=== PATIENT | male | born 1960 | race Caucasian/White ===

== ENCOUNTER 2024-03-21 08:45 | Emergency (ER) | payer MEDICARE, SELFPAY ==
[2024-03-21] VITALS (9 sets, daily range): BP systolic 142–161; BP diastolic 67–90; PULSE 47–55; RESP 14–18; TEMP 36.1; O2SAT 96–99; BMI 31.6
--- NOTE | 2024-03-21 09:25 | EKG_ITS ---
[facility] [address] [place] [address] Test Date: 2024-03-21 Pat Name: Bello Tobias Department: [facility] Room: Gender: Male Manufacturing Coordinator: JANEEN : 1960 Requested By: Order Number: [id number] Reading MD: Boubacar Fontana MD Measurements Intervals [place] Rate: 53 P: 3 VT: 178 QRS: -16 QRSD: 104 T: 31 QT: 440 QTc: 412 Interpretive Statements Sinus bradycardia with premature atrial complexes Minimal voltage criteria for LVH, may be normal variant ( R in aVL ) Electronically Signed On 03-22-2024 8:05:31 PST by Boubacar Fontana MD
[2024-03-21 09:39] LABS: Add Manual Diff / Slide Review NO; Basophils Absolute Auto 100 /uL (0-100); Basophils Percent Auto 0.9 % (0-2); Eosinophils Absolute Auto 100 /uL (0-450); Eosinophils Percent Auto 0.9 % (2-4); Hemoglobin 15.9 g/dL (13.5-17.5); Lymphocytes Absolute Auto 2000 /uL (1100-4500); Lymphocytes Percent Auto 27.6 % (25-40); Mean Corpuscular HGB Conc 33.9 % (30-36); Mean Corpuscular Hemoglobin 32.6 PG (26-34); Mean Corpuscular Volume 96.2 fL (80-100); Monocytes Absolute Auto 600 /uL (0-900); Neutrophils Absolute Auto 4400 /uL (1500-7000); Neutrophils Percent Auto 61.6 % (50-75); Platelet Count 171 X10^3/uL (150-400); Red Blood Cell Count 4.89 X10^6/uL (4.5-5.9); Red Cell Distribution Width 13.1 % (11.6-14.8); White Blood Cell Count 7.2 X10^3/uL (4.5-11.0)
[2024-03-21 09:51] LABS: Alanine Aminotransferase 31 IU/L (<50); Albumin 4.5 g/dL (3.5-5.0); Albumin Globulin Ratio 1.4 (1.0-2.8); Alkaline Phosphatase 68 U/L (38-126); Aspartate Aminotransferase 32 IU/L (17-59); BUN Creatinine Ratio 15.1 (6-22); Bilirubin Total 1.2 mg/dL (0.2-1.3); Blood Urea Nitrogen 13 mg/dL (9-20); Calcium 9.4 mg/dL (8.4-10.2); Carbon Dioxide 28 mmol/L (22-32); Chloride 104 mmol/L (98-107); Estimated Glomerular Filt Rate > 60 mL/min (>60); Globulin 3.3 g/dL (1.7-4.1); Glucose 99 mg/dL (80-110); HEMOLYSIS 31 (0-50); Lipase 71 U/L (23-300); Potassium 4.5 mmol/L (3.4-5.1); Sodium 137 mmol/L (137-145); Total Protein 7.8 g/dL (6.3-8.2)
--- NOTE | 2024-03-21 10:00 | ED.GENADULT ---
HPI - General Adult General Chief complaint: Abdominal Pain Stated complaint: Pain on His left side Time Seen by Provider: 03/21/24 09:57 Source: patient Mode of arrival: Family Vehicle History of Present Illness HPI narrative: 63-year-old gentleman with a history of traumatic brain injury presents with acute left-sided flank pain that is started at 3:00 a.m. on March 18. He has been having intermittent pain since then. Did notice some blood in his urine over the last couple of days. Bowel movements have been normal. He has not having anterior suprapubic tenderness. No chest pain, orthopnea, dyspnea. He has not noticed any fevers or chills. No nausea or vomiting. Related Data Home Medications Medication Instructions Recorded Confirmed aspirin 325 mg tablet 325 mg PO PRN PRN ##0 02/03/17 03/02/23 Previous Rx's Medication Instructions Recorded atorvastatin 40 mg tablet (Lipitor) 40 mg PO HS #90 tabs 10/13/16 lisinopril 20 1 tab PO QDAY #90 tabs 10/28/16 mg-hydrochlorothiazide 12.5 mg tablet amoxicillin 875 mg-potassium 1 tab PO BID #20 tabs 03/21/24 clavulanate 125 mg tablet ondansetron 4 mg disintegrating 4 mg PO Q8H PRN nausea and 03/21/24 tablet vomiting #7 tabs oxycodone-acetaminophen 5 mg-325 1 tab PO Q6H PRN pain #10 tabs 03/21/24 mg tablet Allergies Allergy/AdvReac Type Severity Reaction Status Date / Time ENVIRONMENTAL Allergy Mild SNEEZING, Uncoded 03/21/24 09:09 EYE IRRITATION Review of Systems Review of Systems Narrative: Pertinent positive and negative findings as per HPI Patient History Medical History Traumatic brain injury Coronary artery disease Hyperlipidemia Hypertension Family History Brother Age: 62 Hypertension High cholesterol Social History Smoking Status: Former smoker Smoking Status: Former smoker tobacco type: cigarettes alcohol intake frequency: 3 or more drinks per day Substance Use Type: does not use Exam Initial Vital Signs Initial Vital Signs: Vital Signs Temperature 97 F L 03/21/24 09:03 Pulse Rate 55 L 03/21/24 09:03 Respiratory Rate 18 03/21/24 09:03 Blood Pressure 142/84 H 03/21/24 09:03 Pulse Oximetry 97 03/21/24 09:03 Oxygen Delivery Method Room Air 03/21/24 09:03 General: Healthy appearing, in no acute distress. Able to give a complete and coherent history. Well-nourished well-developed HEENT: Moist mucous membranes, normal sclera with reactive pupils, Respiratory: Lungs are clear to auscultation, no wheezing no rales no rhonchi. 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 Extremities: No trauma, well perfused Psych: Cooperative, appropriate insight and affect Course Orders Ordered: ED Orders 03/21/24 09:10 EKG-12 Lead Stat 03/21/24 09:22 Complete Blood Count AUTO DIFF Stat Comprehensive Metabolic Panel Stat Lipase Stat 03/21/24 11:28 CT kidney ureter bladder (KUB) Stat 03/21/24 11:45 Urine Microscopic Stat Ondansetron HCl (Ondansetron 4 Mg/2 Ml Inj) 4 mg IV NOW PRN PRN Reason: Nausea And Vomiting Ondansetron HCl (Ondansetron 4 Mg Odt) 4 mg PO NOW PRN PRN Reason: Nausea And Vomiting Vital Signs Vital signs: Vital Signs - 8 hr 03/21/24 09:03 03/21/24 09:50 03/21/24 09:51 Temperature 97 F L Pulse Rate 55 L 49 L Respiratory Rate 18 Blood Pressure 142/84 H 158/78 H Pulse Oximetry 97 97 Oxygen Delivery Method Room Air 03/21/24 09:51 03/21/24 10:00 03/21/24 10:00 Temperature Pulse Rate 47 L 49 L Respiratory Rate Blood Pressure 144/90 H Pulse Oximetry 99 98 Oxygen Delivery Method 03/21/24 10:30 03/21/24 10:31 03/21/24 10:31 Temperature Pulse Rate 51 L 50 L Respiratory Rate Blood Pressure 146/68 H Pulse Oximetry 96 97 Oxygen Delivery Method 03/21/24 11:00 03/21/24 11:01 03/21/24 11:01 Temperature Pulse Rate 50 L 51 L Respiratory Rate Blood Pressure 147/72 H Pulse Oximetry 97 96 Oxygen Delivery Method Medical Decision Making Lab Data 03/21/24 09:22 03/21/24 09:22 Labs: Lab Results 03/21/24 03/21/24 Range/Units 09:22 11:45 WBC 7.2 (4.5-11.0) X10^3/uL RBC 4.89 (4.5-5.9) X10^6/uL Hgb 15.9 (13.5-17.5) g/dL Hct 47.0 (41-53) % MCV 96.2 (80-100) fL MCH 32.6 (26-34) PG MCHC 33.9 (30-36) % RDW 13.1 (11.6-14.8) % Plt Count 171 (150-400) X10^3/uL Neut % (Auto) 61.6 (50-75) % Lymph % (Auto) 27.6 (25-40) % [place] % (Auto) 9.0 (3-14) % Eos % (Auto) 0.9 L (2-4) % Baso % (Auto) 0.9 (0-2) % Neut # (Auto) 4400 (7398-3539) /uL Lymph # (Auto) 2000 (9073-4140) /uL [place] # (Auto) 600 (0-900) /uL Eos # (Auto) 100 (0-450) /uL Baso # (Auto) 100 (0-100) /uL Sodium 137 (137-145) mmol/L Potassium 4.5 (3.4-5.1) mmol/L Chloride 104 (98-107) mmol/L Carbon Dioxide 28 (22-32) mmol/L BUN 13 (9-20) mg/dL Creatinine 0.86 (0.66-1.25) mg/dL Estimated GFR > 60 (>60) mL/min BUN/Creatinine Ratio 15.1 (6-22) Glucose 99 (80-110) mg/dL Calcium 9.4 (8.4-10.2) mg/dL Total Bilirubin 1.2 (0.2-1.3) mg/dL AST 32 (17-59) IU/L ALT 31 (<50) IU/L Alkaline Phosphatase 68 (38-126) U/L Total Protein 7.8 (6.3-8.2) g/dL Albumin 4.5 (3.5-5.0) g/dL Globulin 3.3 (1.7-4.1) g/dL Albumin/Globulin Ratio 1.4 (1.0-2.8) Lipase 71 (23-300) U/L Urine RBC 0-1/hpf (0-5/HPF) Urine WBC None seen (0-5/HPF) Ur Squamous Epith Cells None seen (0-5/HPF) Urine Bacteria None seen (None) Ur Culture Indicated? Cult not indicated Vol Urine Centrifuged 10ml (spun) Urine Dip Bedside Urine Glucose Negative Bedside Urine Bilirubin - Negative Bedside Urine Ketone - Negative Urine Specific Kathleen 1.025 Bedside Urine Occult Blood + Bedside Urine pH 6.0 Bedside Urine Protein +/- 15 Bedside Urine Urobilinogen - Negative Bedside Urine Nitrite - Negative Bedside Urine Leukocytes - Negative Esterase Point of care testing: Urine Dip Bedside Urine Glucose Negative Bedside Urine Bilirubin - Negative Bedside Urine Ketone - Negative Urine Specific Kathleen 1.025 Bedside Urine Occult Blood + Bedside Urine pH 6.0 Bedside Urine Protein +/- 15 Bedside Urine Urobilinogen - Negative Bedside Urine Nitrite - Negative Bedside Urine Leukocytes - Negative Esterase MDM Narrative Medical decision making narrative: CC: Left flank pain intermittent for the last 3 days Complicating co-morbidities: Hypertension, hyperlipidemia, no prior kidney stones no history of colon cancer, reports he has had prior diverticulitis Data collected from: patient Social determinants of health that may influence the patients condition: History of TBI Medical records reviewed: Primary care notes from February of 2023 are reviewed Differential considered: Kidney stone, pyelonephritis, neoplastic process, diverticulitis, bowel obstruction Exam documented above, pertinent findings include: Benign exam with the exception of mild left flank pain no rebound or guarding Lab Test results independently reviewed as above. Pertinent findings: CBC is unremarkable, no leukocytosis Chemistries are reassuring Urine does not suggest acute urinary tract infection Independently reviewed EKG: EKG shows sinus bradycardia at 53. Occasional PAC. No acute ischemic changes Imaging studies independently reviewed: CT KUB suggests developing diverticulitis, no evidence of hydronephrosis or ureterolithiasis Treatments: Zofran is given Discussion: 63-year-old gentleman presents with left flank lower quadrant pain. No signs of sepsis, kidney abnormalities or pancreatitis. He does not have an acute abdomen no evidence of urinary tract infection. CT scan suggests developing diverticulitis, he does note that he had a history of diverticulitis in the distant past. His notes that he does not drink water and we discussed the importance of staying hydrated. We discussed adding fiber to keep his stool soft particularly in light of narcotic pain medication that will also be given. At this time there was is no indication that additional imaging, blood work or hospitalization is required today he is safe for discharge Discharge Plan Departure Patient Disposition: Home Clinical Impression: Diverticulitis Instructions: DI for Diverticulitis Activity Restrictions/Additional Instructions: Thank you for coming in today Your lab work was reassuring, there is no kidney dysfunction, liver studies look normal, you do not have overwhelming infection appreciated Does not look like you have a bladder infection. Your CT scan does suggest that you have developing diverticulitis as a source of your pain. I am going to give you a prescription for Augmentin, 1 pill morning and night for 10 days please complete the entire course. I will also give you a brief prescription for Percocet to help with pain. This will make constipation worse so make sure that you are adding even more prunes along with plenty of water to your diet If you find that you are getting worse or develop any new symptoms, please feel free to return to the emergency department for further evaluation. Prescriptions: New amoxicillin-pot clavulanate 875-125 mg tablet 1 tab PO BID Qty: 20 0RF oxycodone-acetaminophen 5-325 mg tablet 1 tab PO Q6H PRN (Reason: pain) Qty: 10 0RF ondansetron 4 mg tablet,disintegrating 4 mg PO Q8H PRN (Reason: nausea and vomiting) Qty: 7 0RF No Action atorvastatin [Lipitor] 40 MG tablet 40 mg PO HS Qty: 90 1RF lisinopril-hydrochlorothiazide 20 MG/12.5 MG tablet 1 tab PO QDAY Qty: 90 1RF aspirin 325 MG tablet 325 mg PO PRN PRNQty: 0 Referrals: Matt King MD [Primary Care Provider] - Stand Alone Forms: Patient Portal/API/Survey
--- NOTE | 2024-03-21 11:28 | DI.CT.S_ITS ---
PROCEDURE: CT KIDNEY URETER BLADDER (KUB) INDICATIONS: L flank pain TECHNIQUE: Axial sections were acquired from the lung bases to the pubic symphysis. Coronal and sagittal reformats were performed. For radiation dose reduction, the following was used: automated exposure control, adjustment of mA and/or kV according to patient size. COMPARISON: None. FINDINGS: Image quality: Diagnostic Lower chest: Basal atelectasis and scarring. Possible coronary and annular cardiac calcifications. Liver: No contour deforming mass. Solid organs are not well assessed without IV contrast. Gallbladder and biliary system: Unremarkable Pancreas: No ductal dilation Spleen: Nonenlarged Adrenals: No discrete nodules Kidneys: No obstructing calcified stone. No hydronephrosis. No contour deforming mass. Vessels and lymph nodes: No abdominal aortic aneurysm. Atherosclerotic calcifications are present. No pathologic lymph nodes by size criteria. Bowel and peritoneum: No evidence of small bowel obstruction. No abscess. No pathologic ascites. Colonic diverticula are seen. Uncomplicated diverticulitis is seen in the mid descending colon. The appendix is nondilated Body wall: Small fat containing inguinal hernias. Tiny fat containing umbilical hernia. Pelvis: Under distended bladder not well assessed. Heterogeneous prostate calcifications also not well assessed on this study Bones: No acute or suspicious osseous finding. There are degenerative changes. IMPRESSION: Uncomplicated appearing diverticulitis of the descending colon. Consider colonoscopy correlation following clinical treatment. No obstructing calcified renal stone or hydronephrosis. Other findings as above on this noncontrast study. Dictated by: Carlos Carrington M.D. on 03/21/2024 at 11:59 Approved by: Carlos Carrington M.D. on 03/21/2024 at 12:02
[2024-03-21 12:00] LABS: Bacteria Urine None Seen; Culture Indicated Urine Cult Not Indicated; RBC Urine 0-1/HPF (0-5/HPF); Squamous Epithelial Cell Urine None Seen (0-5/HPF); Urine Volume 10mL (spun); WBC Urine None Seen (0-5/HPF)
== END 2024-03-21 14:01 | disposition home or self-care (01) ==
PROVIDERS: Emergency Provider Emergency Medicine; PCP Family Medicine
DX: K57.32 Diverticulitis of large intestine without perforation or abscess without bleeding (principal); R00.1 Bradycardia, unspecified
CPT/HCPCS: 36415; 74176; 80053; 81003; 81015; 83690; 85025; 93005; 93010; 99284

== ENCOUNTER 2024-04-10 08:34 | Emergency (ER) | payer MEDICARE, SELFPAY ==
[2024-04-10] VITALS (9 sets, daily range): BP systolic 120–168; BP diastolic 60–80; PULSE 38–59; RESP 16–23; TEMP 36.4; O2SAT 95–100; BMI 31.1
--- NOTE | 2024-04-10 08:50 | ED.ABDPAIN ---
HPI - Abdominal Pain General Chief Complaint: Abdominal Pain Stated Complaint: suspected diverticulitis Time Seen by Provider: 04/10/24 08:49 History of Present Illness HPI narrative: 63-year-old male with history of diverticulitis, multiple previous flares, most recently had flare 03/31/2024, had CT scan here, was treated with as an outpatient with oral Augmentin antibiotic, completed course of antibiotics, felt better after the 1st few days on antibiotics. Now has 4-5 days duration of suprapubic area discomfort. No frequency of urination. In fact feels better after urination. Denies history of urinary retention, no urinary catheterizations. No fevers or chills. No longer has left flank area discomfort like he did with his previous/recent diagnosis diverticulitis. Last bowel movement earlier today unremarkable, no black or red color. No injury or trauma or falls. No cough or shortness of breath. Denies painful urination. Denies nausea or vomiting. He had previous prescription for hydrocodone, took a dose last night. Related Data Home Medications Medication Instructions Recorded Confirmed aspirin 325 mg tablet 325 mg PO PRN PRN ##0 02/03/17 03/02/23 Previous Rx's Medication Instructions Recorded atorvastatin 40 mg tablet (Lipitor) 40 mg PO HS #90 tabs 10/13/16 lisinopril 20 1 tab PO QDAY #90 tabs 10/28/16 mg-hydrochlorothiazide 12.5 mg tablet amoxicillin 875 mg-potassium 1 tab PO BID #20 tabs 03/21/24 clavulanate 125 mg tablet ondansetron 4 mg disintegrating 4 mg PO Q8H PRN nausea and 03/21/24 tablet vomiting #7 tabs oxycodone-acetaminophen 5 mg-325 1 tab PO Q6H PRN pain #10 tabs 03/21/24 mg tablet ciprofloxacin HCl 500 mg tablet 500 mg PO BID #20 tabs 04/10/24 (Cipro) hydrocodone 5 mg-acetaminophen 325 1 tab PO Q6H PRN pain #14 tabs 04/10/24 mg tablet metronidazole 500 mg tablet 500 mg PO TID #30 tabs 04/10/24 Allergies Allergy/AdvReac Type Severity Reaction Status Date / Time ENVIRONMENTAL Allergy Mild SNEEZING, Uncoded 03/21/24 09:09 EYE IRRITATION Review of Systems Review of Systems Narrative: See HPI Patient History Medical History Traumatic brain injury Coronary artery disease Hyperlipidemia Hypertension Family History Brother Age: 62 Hypertension High cholesterol Social History Smoking Status: Former smoker Smoking Status: Former smoker tobacco type: cigarettes alcohol intake frequency: 3 or more drinks per day Substance Use Type: does not use Exam Narrative Exam Narrative: GENERAL: Well-developed patient, in mild distress. HEAD: Atraumatic. Normocephalic. EYES: Pupils equal round and reactive. Extraocular motions intact. No scleral icterus. No injection or drainage. ENT: Nose without bleeding, purulent drainage. Throat without erythema, tonsillar hypertrophy or exudate. Airway patent. NECK: Trachea midline. Non tender CARDIOVASCULAR: Regular rate and rhythm without murmurs, gallops, or rubs. RESPIRATORY: Clear to auscultation. Breath sounds equal bilaterally. No wheezes, rales, or rhonchi. GASTROINTESTINAL: Abdomen soft, non-tender, nondistended. Not particularly tender left lower quadrant, neither flank, suprapubic, right lower quadrant, or any other quadrant abdomen. EXTREMITIES: No edema or joint tenderness. BACK: Nontender without deformity or crepitance. No flank tenderness. NEURO: AOx3. Motor functions grossly nonfocal SKIN: No rash or erythema of visible areas Initial Vital Signs Initial Vital Signs: Vital Signs Temperature 97.6 F 04/10/24 08:47 Pulse Rate 50 L 04/10/24 08:47 Respiratory Rate 18 04/10/24 08:47 Blood Pressure 168/80 H 04/10/24 08:47 Pulse Oximetry 100 04/10/24 08:47 Oxygen Delivery Method Room Air 04/10/24 08:47 Course Orders Ordered: Discontinued Medications Ciprofloxacin (Ciprofloxacin 250 Mg Tablet) 500 mg PO NOW ONE Stop: 04/10/24 10:31 Last Admin: 04/10/24 10:41 Dose: 500 mg Documented By: DORCAS Metronidazole (Metronidazole 500 Mg Tablet) 500 mg PO NOW ONE Stop: 04/10/24 10:31 Last Admin: 04/10/24 10:41 Dose: 500 mg Documented By: DORCAS Vital Signs Vital signs: Vital Signs - 8 hr 04/10/24 08:47 04/10/24 08:47 04/10/24 08:52 Temperature 97.6 F Pulse Rate 50 L 59 L 47 L Respiratory Rate 18 16 Blood Pressure 168/80 H Pulse Oximetry 100 99 Oxygen Delivery Method Room Air 04/10/24 08:52 04/10/24 09:00 04/10/24 09:01 Temperature Pulse Rate 38 L 49 L Respiratory Rate 17 22 Blood Pressure 168/80 H Pulse Oximetry 98 98 Oxygen Delivery Method 04/10/24 09:01 04/10/24 09:30 04/10/24 09:31 Temperature Pulse Rate 45 L 41 L Respiratory Rate 23 21 Blood Pressure 137/76 Pulse Oximetry 97 98 Oxygen Delivery Method 04/10/24 09:31 04/10/24 10:23 04/10/24 10:25 Temperature Pulse Rate 41 L 42 L Respiratory Rate Blood Pressure 137/60 Pulse Oximetry 95 99 Oxygen Delivery Method 04/10/24 10:25 04/10/24 10:30 04/10/24 10:30 Temperature Pulse Rate 41 L Respiratory Rate 19 Blood Pressure 120/70 123/70 Pulse Oximetry 97 Oxygen Delivery Method MDM - Abdominal Pain Lab Data Attestation: I reviewed the patient's lab results. Lab results narrative: White blood cell count 6800, hemoglobin 14, platelets adequate, basic metabolic panel unremarkable, renal function normal, liver function tests normal, lipase normal. Troponin negative. 04/10/24 09:00 04/10/24 09:00 Labs: Lab Results 04/10/24 04/10/24 Range/Units 09:00 09:30 WBC 6.8 (4.5-11.0) X10^3/uL RBC 4.30 L (4.5-5.9) X10^6/uL Hgb 14.1 (13.5-17.5) g/dL Hct 41.0 (41-53) % MCV 95.2 (80-100) fL MCH 32.9 (26-34) PG MCHC 34.5 (30-36) % RDW 13.4 (11.6-14.8) % Plt Count 169 (150-400) X10^3/uL Neut % (Auto) 55.6 (50-75) % Lymph % (Auto) 33.5 (25-40) % [place] % (Auto) 8.9 (3-14) % Eos % (Auto) 1.1 L (2-4) % Baso % (Auto) 0.9 (0-2) % Neut # (Auto) 3800 (5916-1740) /uL Lymph # (Auto) 2300 (1312-5402) /uL [place] # (Auto) 600 (0-900) /uL Eos # (Auto) 100 (0-450) /uL Baso # (Auto) 100 (0-100) /uL Sodium 137 (137-145) mmol/L Potassium 4.2 (3.4-5.1) mmol/L Chloride 106 (98-107) mmol/L Carbon Dioxide 26 (22-32) mmol/L BUN 12 (9-20) mg/dL Creatinine 0.83 (0.66-1.25) mg/dL Estimated GFR > 60 (>60) mL/min BUN/Creatinine Ratio 14.5 (6-22) Glucose 96 (80-110) mg/dL Calcium 9.0 (8.4-10.2) mg/dL Total Bilirubin 1.4 H (0.2-1.3) mg/dL AST 46 (17-59) IU/L ALT 30 (<50) IU/L Alkaline Phosphatase 64 (38-126) U/L Ammonia < 9 L (9-30) umol/L Troponin I < 0.012 (0.01-0.034) ng/mL Total Protein 6.9 (6.3-8.2) g/dL Albumin 4.1 (3.5-5.0) g/dL Globulin 2.8 (1.7-4.1) g/dL Albumin/Globulin Ratio 1.5 (1.0-2.8) Lipase 52 (23-300) U/L TSH 2.38 (0.47-4.68) uIU/mL Imaging Data CT scan - abdomen/pelvis: Radiologist's Impression: [address] [address] [address] Scan Report Signed Patient: Bello Tobias MR#: [id number] : 1960 Acct:[id number] Age/Sex: 63 / M Date of Service: 04/10/24 Loc: ED Accession Number: [id number] Procedure: CT abdomen pelvis w con Ordering Provider: Delfin Boyer MD PROCEDURE: CT ABDOMEN PELVIS W CON INDICATIONS: Abdominal pain, recent oral treatment diverticulitis TECHNIQUE: After the administration of intravenous contrast, axial sections acquired from the lung bases to the pubic symphysis. Coronal and sagittal reformats were performed. For radiation dose reduction, the following was used: automated exposure control, adjustment of mA and/or kV according to patient size. COMPARISON: [facility], CT, CT KIDNEY URETER BLADDER (KUB), 03/21/2024, 11:45. FINDINGS: Image quality: Diagnostic. Lower Chest: Linear atelectasis/scarring in posterior aspect of left lung base is seen. Heart size is normal, no pericardial effusion. ABDOMEN: Liver: No solid mass. Moderate hepatic steatosis is seen. Gallbladder: No radiopaque gallstones or wall thickening. Biliary ducts: No biliary dilation. Pancreas: No ductal dilation. Spleen: Size is within normal limits. Adrenal Glands: No adrenal nodules. Kidneys and Ureters: No hydronephrosis. No solid mass. No complex renal cystic lesion which requires follow up. Stomach and Bowel: Previously described inflammatory changes involving proximal to mid descending colon as nearly resolved with minimal residual pericolonic fat stranding series 2, image 81. There is interval development of segmental wall wall thickening involving mid sigmoid colon in left lower quadrant and significant pericolonic fat stranding series 2, image 123. No abscess collection. No other area of abnormal bowel wall thickening. Appendix is visualized and is within normal limits. Peritoneum: No abnormal intraperitoneal fluid. No free air. Ventral Wall: No significant ventral hernia. Abdominal Nodes: No retroperitoneal or mesenteric adenopathy by size criteria. Vessels: Aorta and inferior vena cava are normal in size. PELVIS: Pelvic Organs: Unremarkable. Bladder: No bladder wall thickening, accounting for underdistention. Pelvic Nodes: No enlarged lymph nodes. Miscellaneous: No inguinal hernias are seen. Bones: No aggressive osseous abnormality. IMPRESSION: 1. Interval development of acute diverticulitis involving mid sigmoid colon in left lower quadrant without perforation or abscess collection. 2. Interval nearly resolved diverticulitis involving mid descending colon in left abdomen. 3. Normal appendix. No bowel obstruction. No other area of abnormal bowel wall thickening. No free fluid or free air. 4. Other findings are unchanged from prior study. Dictated by: Curtis Martinez M.D. on 04/10/2024 at 10:12 Approved by: Curtis Martinez M.D. on 04/10/2024 at 10:15 ECG Data Attestation: I personally reviewed and interpreted this ECG as follows: Interpretation: Sinus bradycardia with rate 39, no obvious ST segment elevation or depression changes. T-wave inversion lead 3 upright in leads 2 and F contiguous inferior leads. CA 178, QRS 96, QTC 383. MDM Narrative Medical decision making narrative: 63-year-old male with history of diverticulitis, most recently treated with oral antibiotic Augmentin as an outpatient for flare diagnosed 03/31/2024, improved symptoms, now with 4-5 days of suprapubic area discomfort. No frequency of urination, in fact feels better after he urinates. Denies history of known urinary retention. Bradycardia noted on monitor, history of low heart rate but not usually in the 30s, EKG and troponin pending, other labs pending. Anticipate CT abdomen and pelvis imaging, with IV contrast if GFR adequate. Pain medications offered, declined for now. CT abdomen and pelvis shows acute diverticulitis changes mid sigmoid without perforation or abscess, no obstructive changes. Also resolving proximal diverticulitis changes noted from comparison previous study. See radiology reports. Recent course oral Augmentin, we will give oral course ciprofloxacin/metronidazole, 1st oral dose now, prescription 10 day course sent to his pharmacy. Ambulation trial tolerated well, bradycardia noted, patient has history of low heart rate, no beta-petros or calcium channel petros medications listed, troponin negative, electrolytes unremarkable, patient/ informed of his asymptomatic bradycardia. They are aware that he has had low heart rates in the past. No syncope or presyncope symptoms. No chest pain or shortness of breath. No generalized or focal weakness. Further workup as an outpatient for now. Discharge Plan Departure Patient Disposition: Home Clinical Impression: Diverticulitis, Bradycardia Instructions: DI for Diverticulitis Activity Restrictions/Additional Instructions: Recent diagnosis of acute diverticulitis treated with oral course of Augmentin antibiotic that was completed, some days rib relief, off antibiotics for now with a few days' duration of lower abdominal discomfort. CT scan abdomen and pelvis tonight showed acute diverticulitis changes in the middle sigmoid region of the colon this time, no perforation or abscess, and also showed improved diverticulitis changes in your previous imaged area on the descending colon. Course of the antibiotics ciprofloxacin and metronidazole advised, 1st dose in the emergency department, further 10 day course sent to your pharmacy. Pain medications also sent to use if needed. Recheck symptoms in the next few days with your regular doctor. Return to this/nearest emergency department for any change worsening symptoms or any concerns prior. Avoid alcohol while taking metronidazole/Flagyl, as this can cause nausea and induced vomiting. Incidentally noted bradycardia on monitor, usually 50s, occasionally down to upper 30s, not symptomatic. Blood tests not suggestive of heart attack. Electrolytes unremarkable. Further evaluation as an outpatient for now. Prescriptions: New ciprofloxacin HCl [Cipro] 500 mg tablet 500 mg PO BID Qty: 20 0RF metronidazole 500 mg tablet 500 mg PO TID Qty: 30 0RF hydrocodone-acetaminophen 5-325 mg tablet 1 tab PO Q6H PRN (Reason: pain) Qty: 14 0RF No Action atorvastatin [Lipitor] 40 MG tablet 40 mg PO HS Qty: 90 1RF lisinopril-hydrochlorothiazide 20 MG/12.5 MG tablet 1 tab PO QDAY Qty: 90 1RF aspirin 325 MG tablet 325 mg PO PRN PRNQty: 0 amoxicillin-pot clavulanate 875-125 mg tablet 1 tab PO BID Qty: 20 0RF oxycodone-acetaminophen 5-325 mg tablet 1 tab PO Q6H PRN (Reason: pain) Qty: 10 0RF ondansetron 4 mg tablet,disintegrating 4 mg PO Q8H PRN (Reason: nausea and vomiting) Qty: 7 0RF Referrals: Matt King MD [Primary Care Provider] - Stand Alone Forms: Patient Portal/API/Survey
--- NOTE | 2024-04-10 09:00 | EKG_ITS ---
[address] [address] [address], [place] [address] Test Date: 2024-04-10 Pat Name: Bello Tobias Department: Room: Gender: Male Manager Of Transportation: SHAHEED : 1960 Requested By: Order Number: [id number] Reading MD: Aguila May Measurements Intervals [place] Rate: 39 P: 2 [place]: 178 QRS: -4 QRSD: 96 T: 16 QT: 476 QTc: 383 Interpretive Statements Critical Test Result: Low HR Marked sinus bradycardia Electronically Signed On 04-10-2024 17:58:34 PST by Aguila May
[2024-04-10 09:16] LABS: Add Manual Diff / Slide Review NO; Basophils Absolute Auto 100 /uL (0-100); Basophils Percent Auto 0.9 % (0-2); Eosinophils Absolute Auto 100 /uL (0-450); Eosinophils Percent Auto 1.1 % (2-4); Hemoglobin 14.1 g/dL (13.5-17.5); Lymphocytes Absolute Auto 2300 /uL (1100-4500); Lymphocytes Percent Auto 33.5 % (25-40); Mean Corpuscular HGB Conc 34.5 % (30-36); Mean Corpuscular Hemoglobin 32.9 PG (26-34); Mean Corpuscular Volume 95.2 fL (80-100); Monocytes Absolute Auto 600 /uL (0-900); Monocytes Percent Auto 8.9 % (3-14); Neutrophils Absolute Auto 3800 /uL (1500-7000); Neutrophils Percent Auto 55.6 % (50-75); Platelet Count 169 X10^3/uL (150-400); Red Cell Distribution Width 13.4 % (11.6-14.8); White Blood Cell Count 6.8 X10^3/uL (4.5-11.0)
[2024-04-10 09:31] LABS: Alanine Aminotransferase 30 IU/L (<50); Albumin 4.1 g/dL (3.5-5.0); Albumin Globulin Ratio 1.5 (1.0-2.8); Alkaline Phosphatase 64 U/L (38-126); Aspartate Aminotransferase 46 IU/L (17-59); BUN Creatinine Ratio 14.5 (6-22); Bilirubin Total 1.4 mg/dL (0.2-1.3); Blood Urea Nitrogen 12 mg/dL (9-20); Carbon Dioxide 26 mmol/L (22-32); Chloride 106 mmol/L (98-107); Estimated Glomerular Filt Rate > 60 mL/min (>60); Globulin 2.8 g/dL (1.7-4.1); Glucose 96 mg/dL (80-110); HEMOLYSIS < 15 (0-50); Lipase 52 U/L (23-300); Potassium 4.2 mmol/L (3.4-5.1); Sodium 137 mmol/L (137-145); Total Protein 6.9 g/dL (6.3-8.2)
--- NOTE | 2024-04-10 09:43 | DI.CT.S_ITS ---
PROCEDURE: CT ABDOMEN PELVIS W CON INDICATIONS: Abdominal pain, recent oral treatment diverticulitis TECHNIQUE: After the administration of intravenous contrast, axial sections acquired from the lung bases to the pubic symphysis. Coronal and sagittal reformats were performed. For radiation dose reduction, the following was used: automated exposure control, adjustment of mA and/or kV according to patient size. COMPARISON: [facility], CT, CT KIDNEY URETER BLADDER (KUB), 03/21/2024, 11:45. FINDINGS: Image quality: Diagnostic. Lower Chest: Linear atelectasis/scarring in posterior aspect of left lung base is seen. Heart size is normal, no pericardial effusion. ABDOMEN: Liver: No solid mass. Moderate hepatic steatosis is seen. Gallbladder: No radiopaque gallstones or wall thickening. Biliary ducts: No biliary dilation. Pancreas: No ductal dilation. Spleen: Size is within normal limits. Adrenal Glands: No adrenal nodules. Kidneys and Ureters: No hydronephrosis. No solid mass. No complex renal cystic lesion which requires follow up. Stomach and Bowel: Previously described inflammatory changes involving proximal to mid descending colon as nearly resolved with minimal residual pericolonic fat stranding series 2, image 81. There is interval development of segmental wall wall thickening involving mid sigmoid colon in left lower quadrant and significant pericolonic fat stranding series 2, image 123. No abscess collection. No other area of abnormal bowel wall thickening. Appendix is visualized and is within normal limits. Peritoneum: No abnormal intraperitoneal fluid. No free air. Ventral Wall: No significant ventral hernia. Abdominal Nodes: No retroperitoneal or mesenteric adenopathy by size criteria. Vessels: Aorta and inferior vena cava are normal in size. PELVIS: Pelvic Organs: Unremarkable. Bladder: No bladder wall thickening, accounting for underdistention. Pelvic Nodes: No enlarged lymph nodes. Miscellaneous: No inguinal hernias are seen. Bones: No aggressive osseous abnormality. IMPRESSION: 1. Interval development of acute diverticulitis involving mid sigmoid colon in left lower quadrant without perforation or abscess collection. 2. Interval nearly resolved diverticulitis involving mid descending colon in left abdomen. 3. Normal appendix. No bowel obstruction. No other area of abnormal bowel wall thickening. No free fluid or free air. 4. Other findings are unchanged from prior study. Dictated by: Curtis Martinez M.D. on 04/10/2024 at 10:12 Approved by: Curtis Martinez M.D. on 04/10/2024 at 10:15
[2024-04-10 09:44] LABS: Troponin I < 0.012 ng/mL (0.01-0.034)
[2024-04-10 09:50] LABS: Ammonia (NH3) < 9 umol/L (9-30)
[2024-04-10 10:27] LABS: Thyroid Stimulating Hormone 2.38 uIU/mL (0.47-4.68)
[2024-04-10] MEDS: CIPROFLOXACIN 250 MG TABLET 500 MG PO (10:41)
[2024-04-10] MEDS: metroNIDAZOLE 500 MG TABLET PO (10:41)
--- NOTE | 2024-04-10 10:59 | PC.NURSE ---
HR 35-40 while at rest, Dr. Boyer aware. RN ambulated with pt on monitor. HR >60, pt reports no symptoms. Dr. Boyer cleared for D/C
== END 2024-04-10 11:02 | disposition home or self-care (01) ==
PROVIDERS: Emergency Provider Emergency Medicine; PCP Family Medicine
DX: K57.32 Diverticulitis of large intestine without perforation or abscess without bleeding (principal); R00.1 Bradycardia, unspecified
CPT/HCPCS: 36415; 74177; 80053; 82140; 83690; 84443; 84484; 85025; 93005; 99284; Q9967